=== PATIENT | female | born 1990 | race African-American/Black ===

== ENCOUNTER 2017-08-06 13:16 | Emergency (ER) | payer OTHER ==
[2017-08-06 14:01] LABS: URINE HCG POC HCG NEGATIVE (Negative)
[2017-08-06 14:26] LABS: BILIRUBIN,URINE NEGATIVE (NEG); CLARITY,URINE CLOUDY; COLOR,URINE YELLOW; GLUCOSE,URINE NEGATIVE (NEG); NITRITE,URINE POSITIVE (NEG); PH,URINE 6.5; PROTEIN,URINE NEGATIVE (NEG-TRACE)
[2017-08-06 14:45] LABS: BACTERIA,URINE MANY /HPF (0-FEW); RBC,URINE RARE /HPF (0-2); SQUAMOUS EPITHELIAL CELL,UR MANY /LPF
[2017-08-06] MEDS: traMADol 50 MG TABLET PO (15:32)
== END 2017-08-06 15:41 | disposition home or self-care (01) ==
LOC: ER 13:16
DX: M54.5 Low back pain (principal); V43.52XA Car driver injured in collision with other type car in traffic accident, initial encounter; Y93.I9 Activity, other involving external motion; Y92.410 Unspecified street and highway as the place of occurrence of the external cause; Y99.8 Other external cause status
CPT/HCPCS: 81001; 81025; 87086; 99284

== ENCOUNTER 2018-07-16 16:09 | Emergency (ER) | payer OTHER ==
[~2018-07-16] VITALS: Ht 170.2 cm; Wt 86.2 kg
[~2018-07-16 16:09] MED LIST: CYCL10TA2 PO; TRAM-48 PO
[2018-07-16 16:20] VITALS: BP 129/58
[2018-07-16] MEDS ORDERED: CEPH500T PO (16:52)
[2018-07-16] MEDS ORDERED: NAPR500T8 PO (16:52)
--- NOTE | 2018-07-16 16:53 | PHYS DOC ---
Past Medical History Past Medical History: No Pertinent History Past Surgical History: No Surgical History Alcohol Use: Occasionally Drug Use: None Adult General Chief Complaint Chief Complaint: TOE PROBLEM HPI HPI Patient is a 27 year old female who presents with a callous on the left later told that began 3 weeks ago. Patient states the calluses are coming from wearing high heeled shoes at work. Review of Systems Review of Systems Constitutional: Denies fever or chills [] Musculoskeletal: Denies back pain or joint pain [] Integument: Calluses to the left little toe. Neurologic: Denies headache, focal weakness or sensory changes [] All other systems were reviewed and found to be within normal limits, except as documented in this note. Allergies Allergies Allergies Coded Allergies Type Severity Reaction Last Updated Verified No Known Drug Allergies 11/20/13 No Physical Exam Physical Exam Constitutional: Well developed, well nourished, no acute distress, non-toxic appearance. [] Skin: Left little toe inner aspect distal and with a callous formation. The skin is peeling off. The area is approximately 2 x 2 centimeters. Peeled off most of the skin that was already flaking off. There is surrounding erythema around this area approximately 0.2 cm. There is no drainage to the area. +2 left pedal pulse. Cap refill less than 2 seconds the left little finger toe. Back: No tenderness, no CVA tenderness. [] Extremities: No tenderness, no cyanosis, no clubbing, ROM intact, no edema. [] Neurologic: Alert and oriented X 3, normal motor function, normal sensory function, no focal deficits noted. [] Psychologic: Affect normal, judgement normal, mood normal. [] EKG EKG [] Radiology/Procedures Radiology/Procedures [] Course & Med Decision Making Course & Med Decision Making Pertinent Labs and Imaging studies reviewed. (See chart for details) This is a 27-year-old female patient presenting to the ED today with callus to the left little toe. The surrounding skin appears infected. Patient was put on cephalexin. Provided taper/finisher for follow-up as an outpatient. Tetanus up-to- date. Dragon Disclaimer Dragon Disclaimer This electronic medical record was generated, in whole or in part, using a voice recognition dictation system. Departure Departure Impression: Primary Impression: Callus of foot Disposition: 01 HOME, SELF-CARE Condition: STABLE Referrals: UNKNOWN PCP NAME (PCP) IMAN VEGA DPKathy follow up in 1 week Patient Instructions: Corns and Calluses-[facility] Additional Instructions: You were seen for calluses on your left fifth toe. We put you on antibiotics for infection. Ensure you complete them. Follow-up with the provided a taper/finisher in 1-2 weeks. Take Tylenol or Motrin for pain. Scripts Naproxen (NAPROXEN) 500 Mg Tablet. 1 TAB PO BID, #20 TAB 0 Refills Prov: KRISTIAN COKER APRN 07/16/18 Cephalexin (CEPHALEXIN) 500 Mg Tablet 1 TAB PO QID, #40 TAB Prov: KRISTIAN COKER APRN 07/16/18 KRISTIAN COKER APRN Jul 16, 2018 16:53
== END 2018-07-16 17:15 | disposition home or self-care (01) ==
LOC: ER 16:09
DX: L84 Corns and callosities (principal)
CPT/HCPCS: 99283